=== PATIENT | male | born 2005 | race Caucasian/White ===

== ENCOUNTER 2023-07-03 19:06 | Emergency (ER) | payer OTHER ==
[~2023-07-03] VITALS: Ht 175.3 cm; Wt 95.1 kg
[2023-07-04] MEDS ORDERED: AZIT-12 PO (01:43)
[2023-07-04] MEDS ORDERED: AMOX500C PO (01:43)
[2023-07-04] MEDS ORDERED: BENZ200C70 PO (01:43)
[2023-07-04] MEDS: AMOXICILLIN 500 MG CAP PO ONE (01:46)
[2023-07-04] MEDS: BENZONATATE 100MG CAPSULE PO ONE (01:46)
[2023-07-04] MEDS: AZITHROMYCIN 250MG TABLET PO ONE (01:46)
[2023-07-04 01:48] VITALS: BP 124/84; TEMP 98.8; O2SAT 98
== END 2023-07-04 02:29 | disposition home or self-care (01) ==
LOC: M ED 19:06
DX: J15.7 Pneumonia due to Mycoplasma pneumoniae (principal); Z79.2 Long term (current) use of antibiotics; Z79.899 Other long term (current) drug therapy